=== PATIENT | male | born 1945 | race Caucasian/White ===

== ENCOUNTER 2019-03-27 09:32 | Observation (INO) | payer MEDICARE ==
[~2019-03-27 09:32] MED LIST: Albuterol/Ipratropium NEB.SOL* Albuterol 2.5 MG/Ipratropium 0.5 MG 3 ML INH ONE; Buffered Lidocaine 1% SYRIN* 1 ML/SYRINGE INTRADERM ONE; Lactated Ringers 1000 ML Bag* 1,000 ML IV SCH
[2019-03-27] MEDS ORDERED: Bupivacaine 0.5% W/EPI SDV* 30 ML VIAL ONE (12:40)
[2019-03-27] MEDS ORDERED: EPINEPHRINE 1 MG/ML 1 ML VIAL ONE (12:40)
[2019-03-27] MEDS ORDERED: oxyCODONE TAB* 5 MG TAB PO PRN (14:22)
[2019-03-27] MEDS ORDERED: DiMENhydriNATE IV* 50 MG/ML VIAL IV PUSH PRN (14:22)
[2019-03-27] MEDS ORDERED: Naloxone* 0.4 MG/ML 1 ML VIAL IV PRN (14:22)
[2019-03-27] MEDS ORDERED: fentaNYL* 50 MCG/ML 2 ML VIAL (100 MCG VIAL) IV PRN (14:22)
--- NOTE | 2019-03-27 14:36 | CONSULT ---
Consult Consult: This is a 73 yo gentleman with PMH significant for PVD, BECKY (does not wear his CPAP), daytime somnolence, ppd smoker x 60 years, and COPD who came in today for right rotator cuff repair. When I saw him in pre-op he was asleep while sitting up in bed. His was there and says that this is common for him. Upon auscultation I appreciated a RUSB systolic murmur. He says that his murmur has not previously been appreciated and denied ever having an echocardiogram. I called his PCP, they did not have an echo on file. It is worth noting that he did have a negative nuclear stress test last week. He denies any signs of right sided heart failure such as swelling in his lower legs. He says he can do ADL without any SOB or CP. I discussed with him, his family, and his surgeon that my biggest concern with him is that he may have increased pulmonary pressures and/or obesity hypoventilation syndrome - and that CO2 narcosis could be worsened with post-op opioid use and not using his CPAP. We discussed the risks of this including with he and his family. We decided to proceed with the surgery with the understnading that he would be admitted overnight, fit for a CPAP in the PACU, have overnight pulse ox monitoring, and that he would use his CPAP once he goes home and follow up with his PCP about his murmur.
[2019-03-27] MEDS ORDERED: Acetaminophen TAB* 325 MG PO PRN (14:58)
[2019-03-27] MEDS ORDERED: Ibuprofen TAB* 600 MG PO PRN (14:58)
[2019-03-27] MEDS ORDERED: diPHENhydraMINE PO* 25 MG PO PRN (15:02)
[2019-03-27] MEDS ORDERED: Bisacodyl SUPP* 10 MG SUPP PR PRN (15:02)
[2019-03-27] MEDS ORDERED: Ondansetron INJ* 2 MG/ML VIAL IV PRN (15:02)
[2019-03-27] MEDS ORDERED: Magnesium Hydroxide LIQ* 30 ML UDC PO PRN (15:02)
[2019-03-27] MEDS ORDERED: Morphine 4 MG/ML VIAL (1 ml) 4 MG/ML VIAL IV PRN (15:02)
[2019-03-27] MEDS ORDERED: oxyCODONE/Acetamin 5/325 MG* TAB PO PRN (15:02)
[2019-03-27] MEDS ORDERED: Tiotropium CAP.INH* CAP.INH/18 MCG (USE ORDER SET !) INH PRN (15:12)
[2019-03-27] MEDS ORDERED: Albuterol HFA INHALER* 8 gm MDI INH PRN (15:12)
[2019-03-27] MEDS ORDERED: Lactated Ringers 1000 ML Bag* 1,000 ML IV SCH (16:00)
[2019-03-27] MEDS: Acetaminophen TAB* 325 MG PO SCH (17:39)
[2019-03-27] MEDS: Magnesium Hydroxide LIQ* 30 ML UDC PO SCH (21:19)
[2019-03-27] MEDS: Docusate CAP* 100 MG PO SCH (21:19)
[2019-03-28] MEDS: Acetaminophen TAB* 325 MG PO SCH ×2 (02:09→07:34)
[2019-03-28] MEDS: oxyCODONE/Acetamin 5/325 MG* TAB PO PRN ×2 (03:33→11:09)
[2019-03-28 06:00] LABS: BUN/Creatinine Ratio 16.8 (8-20); Calcium 9.4 mg/dL (8.6-10.3); EGFR African American 94.3 (>60); EGFR Non-African American 77.9 (>60); Potassium 4.6 mmol/L (3.5-5.0)
[2019-03-28 07:30] VITALS: BP 151/81
[2019-03-28] MEDS: Docusate CAP* 100 MG PO SCH (08:26)
[2019-03-28] MEDS: Magnesium Hydroxide LIQ* 30 ML UDC PO SCH (08:26)
[2019-03-28] MEDS ORDERED: Isosorbide Mononitrate ER TAB* 30 MG PO SCH (09:00)
[2019-03-28] MEDS ORDERED: Diltiazem CD CAP* 180 MG PO SCH (09:00)
[2019-03-28] MEDS ORDERED: Lisinopril TAB* 5 MG PO SCH (09:00)
--- NOTE | 2019-03-28 09:39 | DS ---
Orthopedic Discharge Summary - Discharge Summary Date of Admission:03/27/19 Date of Discharge: 03/28/19 Date of Surgery: 03/27/19 Attending Orthopedic Provider: Dr. Menendez Pre-operative Diagnosis: Right shoulder impringement Operative Procedure: Right shoulder arthroscopy, biologic patch placement, SAD, DCR Disposition of Patient: home Condition of Patient: stable History: ANDRZEJ HERBERT is a 73 year old M with years of increasingly severe right shoulder pain. Patient has failed conservative management and has elected to undergo a right shoulder arthroscopy, debridement, distal clavicle excision and sub acromial decompression. Hospital Course: ANDRZEJ was admitted to [facility] on 03/27/19. Patient underwent a right shoulder arthroscopy without complication followed by a brief recovery in PACU and transfer to the Short Stay Surgical Unit in stable condition. He was monitored overnight due to use of CPAP at home and potential complications form a respiratory standpoint. He had non difficulties post op. Post-op day 1: patient was alert and in no acute distress. Dressing was clean, dry and intact. O2 sats were stable, he had minimal pain. His circulation and sensation in the right upper extremity intact. Patient was deemed to be medically and orthopedically stable for discharge. Home Medications Medication Instructions Recorded Confirmed Type Albuterol inh POWDER (NF) [Proair 2 puff INH Q4H PRN 01/15/16 03/02/19 History Respiclick] traMADol TAB* [Ultram*] 50 mg PO TID PRN 01/15/16 03/02/19 History Diltiazem CD CAP* [Cardizem CD 180 mg PO QAM 03/02/19 03/02/19 History CAP*] Isosorbide Mononitrate ER TAB* 30 mg PO QAM 03/02/19 03/02/19 History [Imdur ER TAB*] Lisinopril TAB* [Prinivil TAB 5 5 mg PO QAM 03/02/19 03/02/19 History MG*] Tiotropium CAP.INH* [Spiriva 1 cap INH DAILY PRN 03/02/19 03/02/19 History CAP.INH*] Ibuprofen TAB* [Motrin TAB* 600 MG] 600 mg PO TID WITH MEALS PRN tab 03/28/19 Rx oxyCODONE/Acetamin 5/325 MG* 1 tab PO Q3H PRN #42 tab MDD 6 03/28/19 Rx [Percocet 5/325 TAB*] Discharge home Rx Percocet sent to pharmacy in [place] Discharge instructions in packet Follow up as scheduled with Dr. Menendez
--- NOTE | 2019-03-28 21:56 | OP ---
OPERATIVE REPORT: DATE OF SURGERY: 03/27/19 SURGEON: Dr. Jose Martin Menendez. SHOWER MAID: YOHANA Beal. A physician miner assistant was required for the length of the procedure for help with positioning, instrum entation, and closure. ANESTHESIOLOGIST: Dr. Eleanor Chávez. ANESTHESIA: General anesthesia, regional interscalene block anesthesia. PRE-OP DIAGNOSES: 1. Right shoulder calcific rotator cuff tendinitis. 2. Right shoulder partial-thickness rotator cuff tendon tears. 3. Right shoulder subacromial impingement and bursitis. 4. Right shoulder AC joint osteoarthritis. 5. Right shoulder superior labral tear with biceps tendinosis. POST-OP DIAGNOSES: 1. Right shoulder calcific rotator cuff tendinitis. 2. Right shoulder partial-thickness rotator cuff tendon tears. 3. Right shoulder subacromial impingement and bursitis. 4. Right shoulder AC joint osteoarthritis. 5. Right shoulder superior labral tear with biceps tendinosis. PROCEDURES: 1. Right shoulder arthroscopic rotator cuff tendon repair with biologic patch, REGENETEN. 2. Right shoulder arthroscopic subacromial decompression. 3. Right shoulder arthroscopic distal clavicle resection. 4. Right shoulder arthroscopic limited debridement including debridement of superior labrum, arthros copic release of long head biceps tendon, with debridement of calcifications about the supraspinatus rotator cuff. ANTIBIOTICS: Ancef 2 g IV. IV FLUIDS: Lactated Ringer's. See anesthesia note. [id number] TIME: 54 minutes. ARTHROSCOPY FLUID UTILIZED: 4.5 bags, each with 3 L for a total of 13.5 L. SPECIMEN: None. IMPLANTS: Gonzalez and Ronal[facility] REGENETEN biologic patch as well as multiple PLLA tendo n anchors. COMPLICATIONS: None. ESTIMATED BLOOD LOSS: Minimal. INDICATIONS FOR PROCEDURE: The patient is a 73-year-old man, right-hand dominant, retired, who has r ight shoulder pain for 9 years without antecedent trauma. He failed a long period of nonoperative ma nagement by multiple surgeons in the past and opted for surgery now. Multiple medical problems. Discussed risks and potential complications of surgery. The patient opted to go forward with surgery . Anesthesia, upon meeting the patient on the day of surgery, felt that the patient, with a new heart m urmur on exam and some respiratory issues, would be much more safely managed if he was admitted posto peratively despite this being a shorter arthroscopic procedure. That is because of general anesthesi a and interscalene block regional anesthesia that can lead to some hemidiaphragm paralysis, etc. Ther efore, prior to the anesthesia and surgery, we decided that the patient would be admitted for observa tion for 1 night postoperatively. DESCRIPTION OF PROCEDURE: In preoperative holding, the patient signed a written consent. Operative extremity was marked in preoperative holding. The patient underwent regional interscalene nerve bloc k by Dr. Chávez in preoperative holding. The patient was taken back to the operating room and placed supine on the operating room table. Sedated and intubated. The patient was transferred to the lateral decubitus position. Right shoulder up. Garces bag hardened. Axillary roll placed with all bony prominences padded. Shoulder in the correct amount of longitudin al traction, forward flexion, and abduction. Shoulder was prepped and draped. Surgical time-out was performed. Infused glenohumeral joint posteriorly with 30 cc of normal saline. Entered glenohumeral joint from posterior. Started diagnostic arthroscopy. No significant lesions at the articular cartilage, gleno id, or humeral head. Significant superior labral tearing appreciated with some tendinosis at the kira gin of the biceps tendon. This was the long head biceps tendon. No rotator cuff tearing appreciated on its undersurface. Established an anterior portal under direct visualization. Used an arthroscopic probe that showed me that the superior labral tear was unstable. Entered arthroscopic scissors and cut the long head bic eps tendon at its base. I smoothed out the superior labrum with an arthroscopic shaver. I moved to the subacromial space and debrided bursitic tissue with arthroscopic shaver. I establishe d lateral and posterolateral portals under direct visualization. I inspected the rotator cuff visually and also with a switching stick and arthroscopic probe. There is 1 area in the anterior supraspinatus where there is clearly some defect. Difficult to establish p ercentage of thickness, but it seemed to be less than 50% thickness. I appreciated micro particles a s I sort of debrided these with the blunt end of the switching stick this area as well as most order entry clerk ior in the tendon, likely allowing to escape all the small particles of calcium that were likely entr apped in that area. Because of the tearing of the rotator cuff, I decided to place a biologic patch. I first performed a subacromial decompression, smoothing out and flattening out the undersurface of t he acromion with a laparoscopic bur. I made a superolateral portal and placed a cannula in it. I placed the patch through my lateral. I used multiple PLLA anchors to place the patch in place. It was affixed well. It was on in adjacent areas of rotator cuff compromise. I moved to the AC joint. I debrided the distal 8 mm of the distal clavicle with an arthroscopic lesley . This patient's clavicle was notable for being quite high from inferior to superior surface. I spe nt a while doing this distal clavicle resection. I removed instruments and fluids from the subacromial space. I closed skin incisions with figure-of- eight and 12 stitches using nylon 3-0 suture, Xeroform, 4x4s, ABDs, firm tape. Sling without abducti on pillow. The patient was brought to the PACU after extubation. DISPOSITION: Wound care instructions were provided to the patient and the family. The patient was ad mitted postoperatively to my service for monitoring given his new murmur, concerns of some right hear t compromise, and respiratory compromise. The patient was to be discharged home the following mordavidn g with Percocet as needed for pain control, wound care instructions, and instructions to start physic al therapy as soon as possible while [facility] the [facility]. The patient kulwinder thakur see me in clinic in 10 to 14 days postoperatively. [id number]/[facility] #: [id number]
== END 2019-03-28 11:15 | disposition home or self-care (01) ==
LOC: OR 09:32 → INTOOBSV 15:02 → SSU 15:02
PROVIDERS: ADMIT Orthopaedic Surgery; ATTEND Orthopaedic Surgery
DX: S46.011D Strain of muscle(s) and tendon(s) of the rotator cuff of right shoulder, subsequent encounter (principal); M75.31 Calcific tendinitis of right shoulder; M75.101 Unspecified rotator cuff tear or rupture of right shoulder, not specified as traumatic; M75.51 Bursitis of right shoulder; M75.41 Impingement syndrome of right shoulder; M19.011 Primary osteoarthritis, right shoulder; G47.33 Obstructive sleep apnea (adult) (pediatric); Z86.79 Personal history of other diseases of the circulatory system; F17.210 Nicotine dependence, cigarettes, uncomplicated; I10 Essential (primary) hypertension; E66.9 Obesity, unspecified; E78.5 Hyperlipidemia, unspecified; Z85.51 Personal history of malignant neoplasm of bladder; M51.36 Other intervertebral disc degeneration, lumbar region
CPT/HCPCS: 36415; 80048; 94660; A9270-GY; G0378

== ENCOUNTER 2021-06-01 13:07 | Inpatient (IN) ==
[2021-06-01 16:38] LABS: Hematocrit 45 % (42-52); Hemoglobin 15.1 g/dL (14.0-18.0); Mean Corpuscular HGB Conc 33 g/dL (31-36); Mean Corpuscular Hemoglobin 31 pg (27-31); Mean Corpuscular Volume 93 fL (80-94); Mean Platelet Volume 9.2 fL (7.4-10.4); Platelet Count 224 10^3/uL (150-450); Red Blood Count 4.85 10^6 /uL (4.18-5.48); Red Cell Distribution Width 15 % (10-15); White Blood Count 15.7 10^3/uL (3.5-10.8)
[2021-06-01 17:00] LABS: ALT 17 U/L (7-52); AST 17 U/L (13-39); Albumin 4.1 g/dL (3.2-5.2); Albumin/Globulin Ratio 1.3 (1-3); Alkaline Phosphatase 64 U/L (35-149); Anion Gap 9 mmol/L (2-11); Blood Urea Nitrogen 24 mg/dL (6-24); CO2 Carbon Dioxide 27 mmol/L (22-32); Calcium 9.4 mg/dL (8.6-10.3); Chloride 99 mmol/L (101-111); EGFR African American 58.5 (>60); EGFR Non-African American 48.3 (>60); Globulin 3.2 g/dL (2-4); Glucose 147 mg/dL (70-100); Magnesium 2.5 mg/dL (1.9-2.7); Potassium 4.7 mmol/L (3.5-5.0); Sodium 135 mmol/L (135-145); Total Protein 7.3 g/dL (6.4-8.9)
[2021-06-01 17:04] LABS: Troponin I 0.15 ng/mL (<0.03)
[2021-06-01 17:14] LABS: C Reactive Protein 15.87 mg/L (<8.01); Cholesterol 235 mg/dL; HDL Cholesterol 35.3 mg/dL; LDL Cholesterol 176 mg/dL; Triglycerides 119 mg/dL
[2021-06-01 17:45] LABS: TSH Ultra Thyroid Stim Horm 0.21 mcIU/mL (0.34-5.60)
[2021-06-01] MEDS: Enoxaparin 40 MG/0.4 ML SYR SUBCUT SCH (18:00)
[2021-06-01 19:49] LABS: Erythrocyte Sed Rate 8 mm/Hr (0-19)
[2021-06-01] MEDS: Albuterol/Ipratropium NEB.SOL (2.5/0.5 MG) 3 ML NEB.SOLN INH PRN (20:41)
[2021-06-02] MEDS: Furosemide 40 mg/4 ml IV VIAL IV SLOW PU SCH (06:00)
[2021-06-02] MEDS ORDERED: Pneumococcal Vac 23-Polyvalent IM ONE (09:00)
[2021-06-02 09:39] LABS: Calcium 9.2 mg/dL (8.6-10.3); EGFR African American 71.6 (>60); EGFR Non-African American 59.2 (>60); Magnesium 2.5 mg/dL (1.9-2.7); Potassium 5.1 mmol/L (3.5-5.0)
[2021-06-02] MEDS ORDERED: Perflutren Lipid Microsphere 3 ML VIAL ONE (10:21)
[2021-06-02] MEDS: Enoxaparin 40 MG/0.4 ML SYR SUBCUT SCH (16:54)
[2021-06-02] MEDS ORDERED: guaiFENesin DM SUGAR FREE 100 MG/10 MG 5 ML UDC PO PRN (17:14)
[2021-06-02] MEDS: Albuterol/Ipratropium NEB.SOL (2.5/0.5 MG) 3 ML NEB.SOLN INH PRN (20:12)
[2021-06-03] MEDS: Furosemide 40 mg/4 ml IV VIAL IV SLOW PU SCH (06:01)
[2021-06-03 06:12] LABS: Hematocrit 45 % (42-52); Hemoglobin 15.1 g/dL (14.0-18.0); Mean Corpuscular HGB Conc 34 g/dL (31-36); Mean Corpuscular Hemoglobin 31 pg (27-31); Mean Corpuscular Volume 92 fL (80-94); Mean Platelet Volume 9.1 fL (7.4-10.4); Platelet Count 203 10^3/uL (150-450); Red Blood Count 4.82 10^6 /uL (4.18-5.48); Red Cell Distribution Width 15 % (10-15); White Blood Count 18.4 10^3/uL (3.5-10.8)
[2021-06-03 06:48] LABS: Calcium 9.1 mg/dL (8.6-10.3); EGFR African American 84.5 (>60); EGFR Non-African American 69.8 (>60)
[2021-06-03 07:15] LABS: Magnesium 2.3 mg/dL (1.9-2.7)
[2021-06-03] MEDS: Enoxaparin 40 MG/0.4 ML SYR SUBCUT SCH (17:57)
[2021-06-03] MEDS: Albuterol/Ipratropium NEB.SOL (2.5/0.5 MG) 3 ML NEB.SOLN INH PRN (19:23)
[2021-06-04] MEDS ORDERED: Furosemide 40 mg/4 ml IV VIAL IV ONE (10:39)
[2021-06-04] MEDS: Enoxaparin 40 MG/0.4 ML SYR SUBCUT SCH (17:06)
[2021-06-04] MEDS: Albuterol/Ipratropium NEB.SOL (2.5/0.5 MG) 3 ML NEB.SOLN INH SCH (19:39)
[2021-06-05] MEDS: Albuterol/Ipratropium NEB.SOL (2.5/0.5 MG) 3 ML NEB.SOLN INH SCH ×4 (00:35→19:31)
[2021-06-05 06:26] LABS: Hematocrit 46 % (42-52); Hemoglobin 15.6 g/dL (14.0-18.0); Mean Corpuscular HGB Conc 34 g/dL (31-36); Mean Corpuscular Hemoglobin 31 pg (27-31); Mean Corpuscular Volume 93 fL (80-94); Mean Platelet Volume 8.6 fL (7.4-10.4); Platelet Count 187 10^3/uL (150-450); Red Blood Count 4.98 10^6 /uL (4.18-5.48); Red Cell Distribution Width 15 % (10-15)
[2021-06-05 06:42] LABS: Calcium 9.2 mg/dL (8.6-10.3); EGFR African American 77.5 (>60); EGFR Non-African American 64.1 (>60); Potassium 4.7 mmol/L (3.5-5.0)
[2021-06-05] MEDS: Nicotine PATCH 21 MG/24 HR PATCH TRANSDERM SCH (11:08)
[2021-06-05] MEDS ORDERED: fentaNYL 100 mcg/2 ml 50 MCG/ML VIAL ONE (13:09)
[2021-06-05] MEDS ORDERED: Naloxone 0.4 mg VIAL 0.4 mg/ml 1 ml VIAL ONE (13:09)
[2021-06-05] MEDS ORDERED: Flumazenil 0.5 mg/5 ml 0.1 MG/ML 5 ml VIAL ONE (13:09)
[2021-06-05] MEDS ORDERED: Midazolam 5 mg/5 ml VIAL 1 mg/ml 5 ml VIAL (5 mg) ONE (13:09)
[2021-06-05] MEDS: Enoxaparin 40 MG/0.4 ML SYR SUBCUT SCH (17:36)
[2021-06-06] MEDS: Albuterol/Ipratropium NEB.SOL (2.5/0.5 MG) 3 ML NEB.SOLN INH SCH ×4 (00:44→19:45)
[2021-06-06] MEDS ORDERED: NS 0.9% 1000 ml BAG 1,000 ML IV SCH (02:00)
[2021-06-06 05:29] LABS: Hematocrit 47 % (42-52); Hemoglobin 15.8 g/dL (14.0-18.0); Mean Corpuscular HGB Conc 34 g/dL (31-36); Mean Corpuscular Hemoglobin 32 pg (27-31); Mean Corpuscular Volume 94 fL (80-94); Mean Platelet Volume 8.4 fL (7.4-10.4); Platelet Count 193 10^3/uL (150-450); Red Blood Count 5.03 10^6 /uL (4.18-5.48); Red Cell Distribution Width 15 % (10-15); White Blood Count 13.3 10^3/uL (3.5-10.8)
[2021-06-06 05:45] LABS: ABS Eosinophils 0.2 10^3/ul (0-0.6); ABS Lymphocytes 2.9 10^3/ul (1.0-4.8); ABS Monocytes 0.9 10^3/ul (0-0.8); ABS Neutrophils 9.3 10^3/ul (1.5-7.7); Eosinophil % 1.5 %; Lymphocyte % 21.8 %
[2021-06-06 05:46] LABS: Calcium 9.1 mg/dL (8.6-10.3); EGFR African American 87.4 (>60); EGFR Non-African American 72.2 (>60); Magnesium 1.9 mg/dL (1.9-2.7); Potassium 3.9 mmol/L (3.5-5.0)
[2021-06-06] MEDS: Nicotine PATCH 21 MG/24 HR PATCH TRANSDERM SCH ×2 (07:58→22:16)
[2021-06-06] MEDS ORDERED: Iohexol 350 (CONTRAST) 200 ML MDV IV ONE (08:08)
[2021-06-06] MEDS ORDERED: Heparin 1,000 UNIT/ML 10 ml (10,000 UNITS) CATHLAB/DIALYSIS ONE (08:08)
[2021-06-06] MEDS ORDERED: Heparin 2 UNITS/ML 1000 mls 3,000 ML IV ONE (08:08)
[2021-06-06] MEDS ORDERED: VERAPAMIL 2.5 MG/ML 2 ML VIAL ** 5 mg/2 ml ONE (08:08)
[2021-06-06] MEDS ORDERED: nitroGLYCERIN DRIP 25,000 MCG/250 ML BTL ONE (08:08)
[2021-06-06] MEDS ORDERED: Midazolam 5 mg/5 ml VIAL 1 mg/ml 5 ml VIAL (5 mg) ONE (08:08)
[2021-06-06] MEDS ORDERED: fentaNYL 100 mcg/2 ml 50 MCG/ML VIAL ONE (08:08)
[2021-06-06] MEDS ORDERED: Lidocaine 1% VIAL 10 MG/ML VIAL ONE (08:08)
[2021-06-06] MEDS ORDERED: Metoprolol Tartrate 5 mg VIAL 5 ml VIAL (1 mg/ml) ONE (09:01)
[2021-06-06] MEDS: Enoxaparin 40 MG/0.4 ML SYR SUBCUT SCH (17:52)
[2021-06-06] MEDS ORDERED: Nicotine PATCH 14 MG/24 HR PATCH TRANSDERM SCH (22:00)
[2021-06-07] MEDS: Albuterol/Ipratropium NEB.SOL (2.5/0.5 MG) 3 ML NEB.SOLN INH SCH ×4 (02:08→19:10)
[2021-06-07 05:10] LABS: Hematocrit 45 % (42-52); Hemoglobin 15.1 g/dL (14.0-18.0); Mean Corpuscular HGB Conc 34 g/dL (31-36); Mean Corpuscular Hemoglobin 31 pg (27-31); Mean Corpuscular Volume 93 fL (80-94); Mean Platelet Volume 8.3 fL (7.4-10.4); Platelet Count 181 10^3/uL (150-450); Red Blood Count 4.84 10^6 /uL (4.18-5.48); Red Cell Distribution Width 15 % (10-15); White Blood Count 12.3 10^3/uL (3.5-10.8)
[2021-06-07 05:26] LABS: EGFR African American 90.5 (>60); EGFR Non-African American 74.8 (>60); Magnesium 1.8 mg/dL (1.9-2.7); Potassium 4.6 mmol/L (3.5-5.0)
[2021-06-07] MEDS: Nicotine PATCH 21 MG/24 HR PATCH TRANSDERM SCH (08:41)
[2021-06-07] MEDS ORDERED: Magnesium Chloride EC 64 mgTAB PO ONE (18:24)
[2021-06-07] MEDS: Enoxaparin 40 MG/0.4 ML SYR SUBCUT SCH (19:24)
[2021-06-08] MEDS: Albuterol/Ipratropium NEB.SOL (2.5/0.5 MG) 3 ML NEB.SOLN INH SCH ×3 (01:39→14:44)
[2021-06-08 05:58] LABS: Hematocrit 45 % (42-52); Mean Corpuscular HGB Conc 34 g/dL (31-36); Mean Corpuscular Hemoglobin 31 pg (27-31); Mean Corpuscular Volume 93 fL (80-94); Mean Platelet Volume 8.8 fL (7.4-10.4); Platelet Count 184 10^3/uL (150-450); Red Blood Count 4.82 10^6 /uL (4.18-5.48); Red Cell Distribution Width 14 % (10-15); White Blood Count 15.9 10^3/uL (3.5-10.8)
[2021-06-08 06:10] LABS: EGFR African American 109.6 (>60); EGFR Non-African American 90.6 (>60); Magnesium 1.8 mg/dL (1.9-2.7); Potassium 4.9 mmol/L (3.5-5.0)
[2021-06-08] MEDS: Nicotine PATCH 21 MG/24 HR PATCH TRANSDERM SCH (09:44)
[2021-06-08] MEDS: Enoxaparin 40 MG/0.4 ML SYR SUBCUT SCH (16:44)
[2021-06-08] MEDS ORDERED: Magnesium Chloride EC 64 mgTAB PO ONE (17:06)
[2021-06-08] MEDS: Albuterol HFA INHALER 8 gm MDI INH SCH ×2 (19:36→20:25)
[2021-06-09] MEDS: Albuterol HFA INHALER 8 gm MDI INH SCH ×4 (02:40→21:13)
[2021-06-09 08:12] LABS: Hematocrit 48 % (42-52); Hemoglobin 16.3 g/dL (14.0-18.0); Mean Corpuscular HGB Conc 34 g/dL (31-36); Mean Corpuscular Hemoglobin 32 pg (27-31); Mean Corpuscular Volume 93 fL (80-94); Mean Platelet Volume 8.6 fL (7.4-10.4); Platelet Count 193 10^3/uL (150-450); Red Blood Count 5.17 10^6 /uL (4.18-5.48); Red Cell Distribution Width 14 % (10-15); White Blood Count 17.8 10^3/uL (3.5-10.8)
[2021-06-09 08:54] LABS: Calcium 9.6 mg/dL (8.6-10.3); EGFR African American 98.5 (>60); EGFR Non-African American 81.4 (>60); Magnesium 1.9 mg/dL (1.9-2.7); Phosphorus 4.3 mg/dL (2.5-5.0); Potassium 4.2 mmol/L (3.5-5.0)
[2021-06-09] MEDS: Nicotine PATCH 21 MG/24 HR PATCH TRANSDERM SCH (09:52)
[2021-06-09] MEDS: Enoxaparin 40 MG/0.4 ML SYR SUBCUT SCH ×2 (17:59→21:12)
[2021-06-10] MEDS: Albuterol HFA INHALER 8 gm MDI INH SCH ×2 (02:04→09:02)
[2021-06-10] MEDS ORDERED: Albuterol HFA INHALER 8 gm MDI INH PRN (09:02)
[2021-06-10] MEDS: Nicotine PATCH 21 MG/24 HR PATCH TRANSDERM SCH (10:44)
[2021-06-10] MEDS: Enoxaparin 40 MG/0.4 ML SYR SUBCUT SCH (20:16)
[2021-06-11] MEDS: Nicotine PATCH 21 MG/24 HR PATCH TRANSDERM SCH (07:32)
[2021-06-11 10:51] LABS: Hematocrit 46 % (42-52); Hemoglobin 15.1 g/dL (14.0-18.0); Mean Corpuscular HGB Conc 33 g/dL (31-36); Mean Corpuscular Hemoglobin 31 pg (27-31); Mean Corpuscular Volume 93 fL (80-94); Mean Platelet Volume 8.7 fL (7.4-10.4); Platelet Count 199 10^3/uL (150-450); Red Blood Count 4.91 10^6 /uL (4.18-5.48); Red Cell Distribution Width 14 % (10-15); White Blood Count 17.8 10^3/uL (3.5-10.8)
[2021-06-11 11:08] LABS: Calcium 9.1 mg/dL (8.6-10.3); EGFR African American 91.5 (>60); EGFR Non-African American 75.7 (>60); Magnesium 1.8 mg/dL (1.9-2.7); Potassium 4.3 mmol/L (3.5-5.0)
[2021-06-11 11:26] LABS: ABS Eosinophils 0.1 10^3/ul (0-0.6); ABS Monocytes 0.6 10^3/ul (0-0.8); ABS Neutrophils 15.1 10^3/ul (1.5-7.7); Eosinophil % 0.8 %
[2021-06-11 14:13] VITALS: BP 154/67
== END 2021-06-11 17:30 | DRG 190 ==
LOC: MEDTELE 15:30 → MERGE 15:30 → MED 06-07 23:18
PROVIDERS: ADMIT Internal Medicine; ATTEND Internal Medicine